=== PATIENT | female | born 2000 ===

== ENCOUNTER → 2018-10-01 22:47 | Outpatient (REF) | payer OTHER, SELFPAY ==
[2018-10-04 11:17] LABS: RPR Screen Nonreactive (Nonreactive)
== END ==
LOC: LAB 22:47
PROVIDERS: Visit Provider Family Medicine
DX: Z11.1 Encounter for screening for respiratory tuberculosis (principal); Z11.3 Encounter for screening for infections with a predominantly sexual mode of transmission
CPT/HCPCS: 36415; 86480; 86592; 87591